=== PATIENT | female | born 2000 | race Caucasian/White ===

== ENCOUNTER 2024-11-05 07:59 | Emergency (ER) | payer SELFPAY ==
[~2024-11-05] VITALS: Ht 157.4 cm; Wt 52.2 kg
[~2024-11-05 07:59] MED LIST: SEPTDS PO
[2024-11-05 08:12] VITALS: BP 100/61
[2024-11-05] MEDS ORDERED: Cyclobenzaprine Hydrochlorid 10 MG TAB PO ONE (08:30)
[2024-11-05 08:50] LABS: URINE AMPHETAMINES Negative (1000ng/ml); URINE BARBITURATES Negative (200ng/ml); URINE BENZODIAZEPINES Negative (200ng/ml); URINE CANNABINOIDS (THC) Positive (50ng/ml); URINE COCAINE Negative (300ng/ml); URINE METHADONE Negative (300ng/ml); URINE OPIATES Negative (300ng/ml); URINE PHENCYCLIDINE Negative (25ng/ml)
[2024-11-05] MEDS ORDERED: CYCLOBENZAPRINE5 M3 PO (09:17)
== END 2024-11-05 09:21 | disposition home or self-care (01) ==
LOC: ED 07:59
PROVIDERS: Internal Medicine
DX: M62.838 Other muscle spasm (principal); M54.2 Cervicalgia; Z79.899 Other long term (current) drug therapy